=== PATIENT | male | born 1955 ===

== ENCOUNTER → 2019-12-20 | Outpatient (CLI) | payer OTHER | LOC: SJCVCIMAG 07:47 | DX: I08.3 Combined rheumatic disorders of mitral, aortic and tricuspid valves (principal); E11.9 Type 2 diabetes mellitus without complications ==

== ENCOUNTER → 2020-11-11 | Outpatient (CLI) | payer OTHER | LOC: LAB 11:09 | PROVIDERS: ATTEND Family Medicine | DX: R05 Cough (principal); Z20.822 Contact with and (suspected) exposure to COVID-19 ==